=== PATIENT | female | born 1980 | race Caucasian/White ===

== ENCOUNTER 2020-02-28 18:27 | Emergency (ER) | payer OTHER ==
[~2020-02-28] VITALS: Ht 157.5 cm; Wt 90.7 kg
[2020-02-28 19:58] VITALS: BP 178/118
== END 2020-02-28 19:58 | disposition home or self-care (01) ==
LOC: ER 18:27
DX: J02.9 Acute pharyngitis, unspecified (principal); R05 Cough; R19.7 Diarrhea, unspecified; R43.8 Other disturbances of smell and taste; R51 Headache; Z20.828 Contact with and (suspected) exposure to other viral communicable diseases; F17.210 Nicotine dependence, cigarettes, uncomplicated